=== PATIENT | male | born 2000 | race Two or more races ===

== ENCOUNTER 2022-09-04 16:44 | Emergency (ER) | payer MEDICAID, OTHER ==
[~2022-09-04] VITALS: Ht 165.1 cm; Wt 67.8 kg
[2022-09-04] MEDS ORDERED: LIDOCAINE 1% HCL (LOCAL ANESTH.) INJ 20ML MDV ID ONE (18:30)
[2022-09-04] MEDS ORDERED: TETANUS-DIPTH-ACEL PERTUSSIS 0.5ML SYR Tdap IM ONE (18:30)
[2022-09-04] MEDS ORDERED: CEPH-510 PO (20:08)
[2022-09-04 20:34] VITALS: BP 123/71
== END 2022-09-04 20:31 | disposition home or self-care (01) ==
LOC: ER 16:44
DX: S02.2XXA Fracture of nasal bones, initial encounter for closed fracture (principal); S01.21XA Laceration without foreign body of nose, initial encounter; W11.XXXA Fall on and from ladder, initial encounter; Y93.89 Activity, other specified; Y92.89 Other specified places as the place of occurrence of the external cause; Y99.8 Other external cause status
CPT/HCPCS: 12015; 70450; 70486; 72125; 90471; 90715; 99285; J2001